=== PATIENT | male | born 1945 | race Caucasian/White ===

== ENCOUNTER 2016-09-10 10:17 | Inpatient (IN) | payer MEDICARE ==
[~2016-09-10 10:17] MED LIST: DEXTROSE 5%-WATER 250 ML with NOREPINEPHRINE BITARTRATE 4 MG IV SCH; MIDAZOLAM IV SCH; NORMAL SALINE 100 ML IV SCH; PROPOFOL 100 ML IV SCH; SODIUM BICARBONATE 4.2% INJ (2.4 MEQ/5 ML) VIAL IV SCH; SUCCINYLCHOLINE CHLORIDE INJ 200 MG/10 ML VIAL ONE
--- NOTE | 2016-09-10 10:27 | ER Document Report ---
ED Medical Screen (RME) - General Stated Complaint: DIFFICULTY BREATHING Notes: Patient states he has been having difficulty breathing for the last month. Has a fever today. Patient also complains of weakness, but denies chest pain. I have greeted and performed a rapid initial assessment of this patient. A comprehensive ED assessment and evaluation of the patient, analysis of test results and completion of the medical decision making process will be conducted by additional ED providers. TRAVEL OUTSIDE OF THE [place] IN LAST 30 DAYS: No - Related Data Allergies/Adverse Reactions: No Known Allergies Allergy (Verified 09/10/16 10:27) Past Medical History - Past Medical History Cardiac Medical History: Reports: Hx Congestive Heart Failure, Hx Hypercholesterolemia, Hx Hypertension Pulmonary Medical History: Reports: Hx Bronchitis, Hx COPD, Hx Pneumonia, Hx Respiratory Failure Endocrine Medical History: Reports: Hx Diabetes Mellitus Type 2 GI Medical History: Reports: Hx Gastroesophageal Reflux Disease Psychiatric Medical History: Denies: Hx Depression Physical Exam - Vital signs Vitals: Temp Pulse Resp BP Pulse Ox 100.5 F H 78 42 H 88/48 L 87 L 09/10/16 10:09/10/16 10:09/10/16 10:09/10/16 10:09/10/16 10:23 - Respiratory Respiratory status: Labored, Tachypnea Breath sounds: Decreased air movement Course - Vital Signs Vital signs: Temp Pulse Resp BP Pulse Ox 100.5 F H 78 42 H 88/48 L 87 L 09/10/16 10:09/10/16 10:09/10/16 10:09/10/16 10:09/10/16 10:23
[2016-09-10] MEDS ORDERED: ACETAMINOPHEN 325 MG TABLET PO ONE (10:43)
[2016-09-10] MEDS ORDERED: LEVOFLOXACIN 750 MG/D5W RTU 150 ML IV ONE (10:43)
[2016-09-10] MEDS ORDERED: NORMAL SALINE 1000 ML 1,000 ML IV PRN ×3 (10:45→12:52)
--- NOTE | 2016-09-10 10:45 | ER Document Report ---
ED General - General Chief Complaint: Shortness Of Breath Stated Complaint: DIFFICULTY BREATHING Mode of Arrival: Ambulatory Information source: Patient, Relative Notes: 71-year-old male history of COPD presents with one month duration of shortness of breath. Patient notes initially he had a productive green cough. Patient notes that he is on 2 L nasal cannula at home but has recently had to increase it. Patient was noted to be febrile and hypoxic hypotensive tachycardic on arrival TRAVEL OUTSIDE OF THE [place] IN LAST 30 DAYS: No - HPI Onset: Other - One month duration of cough Onset/Duration: Persistent Quality of pain: No pain Severity: Moderate Pain Level: Denies Associated symptoms: Body/muscle aches, Productive cough, Fever, Shortness of breath Exacerbated by: Walking Relieved by: Denies Similar symptoms previously: Yes Recently seen / treated by doctor: Yes - Related Data Allergies/Adverse Reactions: No Known Allergies Allergy (Verified 09/10/16 10:27) Past Medical History - Social History Smoking Status: Current Some Day Smoker Cigarette use (# per day): Yes Chew tobacco use (# tins/day): No Smoking Education Provided: Yes - Patient counselled regarding cessation for 4 minutes Frequency of alcohol use: None Drug Abuse: None Family History: None, Reviewed & Not Pertinent Patient has suicidal ideation: No Patient has homicidal ideation: No - Past Medical History Cardiac Medical History: Reports: Hx Congestive Heart Failure, Hx Hypercholesterolemia, Hx Hypertension Pulmonary Medical History: Reports: Hx Bronchitis, Hx COPD, Hx Pneumonia, Hx Respiratory Failure Endocrine Medical History: Reports: Hx Diabetes Mellitus Type 2 Renal/ Medical History: Denies: Hx Peritoneal Dialysis GI Medical History: Reports: Hx Gastroesophageal Reflux Disease Psychiatric Medical History: Denies: Hx Depression Review of Systems - Review of Systems Notes: REVIEW OF SYSTEMS: CONSTITUTIONAL : admits ot fever EENT: Denies eye, ear, throat, or mouth pain or symptoms. Denies nasal or sinus congestion or discharge. Denies throat, tongue, or mouth swelling or difficulty swallowing. CARDIOVASCULAR: Denies chest pain. Denies palpitations or racing or irregular heart beat. Denies ankle edema. RESPIRATORY: admits ot productive cough, sob GASTROINTESTINAL: Denies abdominal pain or distention. Denies nausea, vomiting , or diarrhea. Denies blood in vomitus, stools, or per rectum. Denies black, tarry stools. Denies constipation. GENITOURINARY: Denies difficulty urinating, painful urination, burning, frequency, blood in urine, or discharge. MUSCULOSKELETAL: Denies back or neck pain or stiffness. Denies joint pain or swelling. SKIN: Denies rash, lesions or sores. HEMATOLOGIC : Denies easy bruising or bleeding. LYMPHATIC: Denies swollen, enlarged glands. NEUROLOGICAL: Denies confusion or altered mental status. Denies passing out or loss of consciousness. Denies dizziness or lightheadedness. Denies headache. Denies weakness or paralysis or loss of use of either side. Denies problems with gait or speech. Denies sensory loss, numbness, or tingling. Denies seizures. PSYCHIATRIC: Denies anxiety or stress. Denies depression, suicidal ideation, or homicidal ideation. ALL OTHER SYSTEMS REVIEWED AND NEGATIVE. Dictation was performed using [employer] voice recognition software PHYSICAL EXAMINATION: GENERAL: Ill-appearing male moderate respiratory distress hypotensive HEAD: Atraumatic, normocephalic. EYES: Pupils equal round and reactive to light, extraocular movements intact, sclera anicteric, conjunctiva are normal. ENT: Nares patent, oropharynx clear without exudates. Moist mucous membranes. NECK: Normal range of motion, supple without lymphadenopathy LUNGS: Coarse rhonchi all throughout HEART: Tachycardic ABDOMEN: Soft, nontender, nondistended abdomen. No guarding, no rebound. No masses appreciated. Musculoskeletal: Normal range of motion, no pitting or edema. No cyanosis. NEUROLOGICAL: Cranial nerves grossly intact. Normal speech, normal gait. Normal sensory, motor exams PSYCH: Normal mood, normal affect. SKIN: Hot to touch Physical Exam - Vital signs Vitals: Temp Pulse Resp BP Pulse Ox 100.5 F H 78 42 H 88/48 L 87 L 09/10/16 10:23 09/10/16 10:23 09/10/16 10:23 09/10/16 10:23 09/10/16 10:23 Course - Re-evaluation Re-evalutation: 09/10/16 10:48 Patient meets sirs criteria at this time fluids x-ray imaging lab work are pending. Patient will be immediately placed on BiPAP 09/10/16 11:57 xray consistant with LLL pneumonia, pt lanbs note elevated wbc. pt already started on fluids antibitoics , will admit ot imcu to Dr Arnold - Vital Signs Vital signs: Temp Pulse Resp BP Pulse Ox 100.5 F H 78 20 80/43 L 91 L 09/10/16 10:23 09/10/16 10:23 09/10/16 11:45 09/10/16 11:45 09/10/16 11:45 - Laboratory Result Diagrams: 09/10/16 10:55 09/10/16 10:55 Laboratory results interpreted by me: 09/10/16 09/10/16 09/10/16 10:55 10:55 10:55 WBC 17.0 H Hgb 13.3 L MCHC 31.4 L RDW 15.4 H Seg Neutrophils % 86.8 H Lymphocytes % 5.7 L Absolute Neutrophils 14.7 H VBG pCO2 64.2 H VBG HCO3 32.6 H Chloride 93 L Carbon Dioxide 34 H BUN 25 H Glucose 176 H Total Protein 5.9 L Albumin 3.3 L - Diagnostic Test Radiology reviewed: Image reviewed, Reports reviewed - EKG Interpretation by Me EKG shows normal: Sinus rhythm, [place], Intervals, QRS Complexes - bigeminey When compared to previous EKG there are: Previous EKG unavailable Critical Care Note - Critical Care Note Total time excluding time spent on procedures (mins): 31 Comments: 31 minutes of critical care time spent in direct contact evaluating and reevaluating the patient, treating symptoms, reviewing labs and studies and speaking with family and consultants excluding any procedures Discharge - Discharge Clinical Impression: COPD exacerbation, Hypoxemia, Tobacco dependency Sepsis Qualifiers: Sepsis type: sepsis due to unspecified organism Qualified Code(s): A41.9 - Sepsis, unspecified organism Pneumonia Qualifiers: Pneumonia type: due to unspecified organism Laterality: left Lung location: lower lobe of lung Qualified Code(s): J18.1 - Lobar pneumonia, unspecified organism Condition: Fair Disposition: ADMITTED INPATIENT Admitting Provider: [facility] Unit Admitted: [facility]
[2016-09-10 11:24] LABS: ABSOLUTE BASOPHILS # (AUTO) 0.1 10^3/uL (0.0-0.2); ABSOLUTE MONOCYTES (AUTO) 1.1 10^3/uL (0.1-1.4); ABSOLUTE NEUT (AUTO) 14.7 10^3/uL (1.7-8.2); BASOPHILS % (AUTO) 0.7 % (0-2); EOSINOPHILS % (AUTO) 0.2 % (0-6); HEMATOCRIT 42.3 % (37.9-51.0); HEMOGLOBIN 13.3 g/dL (13.5-17.0); HGB HCT DIFFERENCE -2.4; LYMPHOCYTES % (AUTO) 5.7 % (13-45); MEAN CORPUSCULAR HEMOGLOBIN 28.1 pg (27.0-33.4); MEAN CORPUSCULAR HGB CONC 31.4 g/dL (32.0-36.0); MEAN CORPUSCULAR VOLUME 89 fl (80-97); MONOCYTES % (AUTO) 6.6 % (3-13); RED BLOOD COUNT 4.74 10^6/uL (4.35-5.55); RED CELL DISTRIBUTION WIDTH 15.4 % (11.5-14.0); SEGMENTED NEUTROPHILS % (AUTO) 86.8 % (42-78)
[2016-09-10 11:34] LABS: PROTHROMBIN TIME 13.2 SEC (11.4-15.4)
[2016-09-10 11:38] LABS: VENOUS BLOOD BASE EXCESS 4.4 mmol/L; VENOUS BLOOD HCO3 32.6 mmol/L (20-32); VENOUS BLOOD PCO2 64.2 mmHg (35-63); VENOUS BLOOD PH 7.32 (7.30-7.42)
[2016-09-10 11:47] LABS: ALANINE AMINOTRANSFERASE 25 U/L (21-72); ALBUMIN 3.3 g/dL (3.5-5.0); ALKALINE PHOSPHATASE 95 U/L (38-126); ANION GAP 13 (5-19); ASPARTATE AMINO TRANSFERASE 17 U/L (17-59); BILIRUBIN,DIRECT 0.3 mg/dL (0.0-0.4); BILIRUBIN,TOTAL 0.7 mg/dL (0.2-1.3); BLOOD UREA NITROGEN 25 mg/dL (7-20); CARBON DIOXIDE 34 mmol/L (22-30); CHLORIDE 93 mmol/L (98-107); CREATINE KINASE 81 U/L (55-170); CREATININE RESULT 0.99 mg/dL (0.52-1.25); GLUCOSE 176 mg/dL (75-110); LIPASE 30.2 U/L (23-300); POTASSIUM 4.3 mmol/L (3.6-5.0); SODIUM 139.6 mmol/L (137-145); TOTAL PROTEIN 5.9 g/dL (6.3-8.2)
[2016-09-10 12:01] LABS: CREATINE KINASE MB 0.75 ng/mL (<4.55); TROPONIN I 0.022 ng/mL
[2016-09-10] MEDS ORDERED: ETOMIDATE INJ/PF 20 MG/10 ML SDV IV ONE (12:14)
[2016-09-10] MEDS ORDERED: EPINEPHRINE INJ/PF 1 MG/1 ML AMPULE ONE ×4 (12:16→22:26)
[2016-09-10] MEDS ORDERED: MIDAZOLAM HCL 0 ML IV ONE (12:17)
[2016-09-10] MEDS: DEXTROSE 5%-WATER 250 ML with EPINEPHRINE/PF 1 MG IV PRN ×6 (12:20→19:40)
[2016-09-10 12:33] LABS: APPEARANCE,URINE CLEAR; BILIRUBIN,URINE NEGATIVE (NEGATIVE); GLUCOSE, URINE NEGATIVE (NEGATIVE); KETONES,URINE NEGATIVE (NEGATIVE); LEUKOCYTE ESTERASE,URINE NEGATIVE (NEGATIVE); NITRITE,URINE NEGATIVE (NEGATIVE); PROTEIN,URINE >=500 mg/dL (NEGATIVE); URINE SPECIFIC GRAVITY 1.013; UROBILINOGEN,URINE NEGATIVE mg/dL (<2.0)
[2016-09-10] MEDS ORDERED: ACETAMINOPHEN 325 MG TABLET PO PRN (12:52)
[2016-09-10] MEDS ORDERED: VANCOMYCIN HCL 0 MG in DEXTROSE 5%-WATER 250 ML IV NR (13:00)
[2016-09-10] MEDS ORDERED: DEXTROSE 50%-WATER 25 GM/50 ML DISP.SYRIN IV PRN ×2 (13:01)
[2016-09-10] MEDS ORDERED: DEXTROSE 40% GEL 15 GM TUBE PO PRN ×2 (13:01)
[2016-09-10] MEDS ORDERED: GLUCAGON,HUMAN RECOMB 1 MG INJ IM PRN (13:01)
[2016-09-10] MEDS ORDERED: INSULIN LISPRO 100 UNIT/ML 3 ML VIAL SUBCUT PRN (13:01)
--- NOTE | 2016-09-10 13:12 | EKG REPORT ---
SEVERITY:- ABNORMAL ECG - SINUS RHYTHM SUPRAVENTRICULAR BIGEMINY PROBABLE LEFT ATRIAL ABNORMALITY RIGHT BUNDLE BRANCH BLOCK : Confirmed by: David Hernandez MD 10-Sep-2016 13:12:13
[2016-09-10] MEDS ORDERED: PHARMACY COMMUNICATION ORDER MC NR (14:00)
--- NOTE | 2016-09-10 14:36 | PDOC H&P ---
History of Present Illness Admission Date/PCP: 09/10/16 12:52 Patient complains of: Shortness of the breath History of Present Illness: MERLYN RENTERIA is a 71 year old male This is a 71-year-old male with a significant history of end-stage COPD history of the coronary artery disease and diastolic congestive heart failure and hypertension's and a chronic smoker currently see pulmonary and cardiology as outpatients in patients evaluated and widened in the past and suggest the pretty much hospice care because of the end-stage COPD came to the emergency department with a complaint of shortness of the breath and increasing some cough with a yellow sputum and a congestions and breathing very heavily in the emergency department patient's respiratory rate is high and patient's O2 sat is low even the patient used to to 3 L oxygen at home's patient was put on a BiPAP initially by the ER physicians and the ER physicians noticed that the patient's heart rate was running low and was hypotensive and patient was started on Apri drips when I saw the patient's patient was comfortable in the BiPAP but still the heart rate was between 30 rangeAnd at this point a doctor Curseen the pulmonary was on the bedside with me and suggested patients might get a benefit with the intubations because of the respiratory rate but very extensive discussions with the patient and the daughter and patient does not want to be intubated right nowAnd patient understand the risk and her daughter understood and also to. Patient's heart rate was running around 80 range patients denied any chest painPatient's initial chest x-ray so the pneumonia and patient's white count was also elevated toAdmit the patient in intensive care unit discussed with the cardiology Dr. Andres and he will order the echocardiogram and reevaluate the patient's to rule out any pacemaker placements Past Medical History Cardiac Medical History: Reports: Congestive Heart Failure, Hyperlipidema, Hypertension Pulmonary Medical History: Reports: Bronchitis, Chronic Obstructive Pulmonary Disease (COPD), Pneumonia, Respiratory Failure Endocrine Medical History: Reports: Diabetes Mellitus Type 2 GI Medical History: Reports: Gastroesophageal Reflux Disease Psychiatric Medical History: Denies: Depression Hematology: Reports: Anemia Social History Smoking Status: Current Some Day Smoker Frequency of Alcohol Use: None Hx Recreational Drug Use: No Drugs: None Hx Prescription Drug Abuse: No Family History Family History: None, Reviewed & Not Pertinent Parental Family History Reviewed: Yes Children Family History Reviewed: Yes Sibling(s) Family History Reviewed.: Yes Medication/Allergy Home Medications: Albuterol Sulfate [Albuterol Sulfate 2.5mg/3 mL] 1 vial NEB TID 09/10/16 Amlodipine Besylate [Norvasc 5 mg Tablet] 5 mg PO DAILY 09/10/16 Ipratropium Lolo 2 spray NASL BID 09/10/16 Metformin HCl [Glucophage] 1,000 mg PO BID 09/10/16 Allergies/Adverse Reactions: No Known Allergies Allergy (Verified 09/10/16 10:27) Review of Systems Constitutional: PRESENT: fatigue, weakness Nose, Mouth, and Throat: ABSENT: as per HPI, headache(s), mouth pain, sore throat, vertigo, other Cardiovascular: PRESENT: dyspnea on exertion Respiratory: PRESENT: cough, dyspnea, sputum Gastrointestinal: ABSENT: as per HPI, abdominal pain, bloating, coffee ground emesis, constipation, diarrhea, dysphagia, heartburn, hematemesis, hematochezia , melena, nausea, vomiting, other Genitourinary: ABSENT: as per HPI, difficulty urinating, dysuria, hematuria, nocturia, other Musculoskeletal: ABSENT: as per HPI, back pain, deformity, joint swelling, muscle weakness, other Integumentary: ABSENT: as per HPI, diaphoresis, erythema, lesions, pruritus, rash, wounds, other Neurological: ABSENT: as per HPI, abnormal gait, abnormal movements, abnormal speech, confusion, convulsions, dizziness, focal weakness, frequent falls, lack of coordination, memory loss, numbness, paresthesias, restless legs, syncope, tingling, tremor(s), vertigo, weakness, other Psychiatric: PRESENT: depression Endocrine: ABSENT: as per HPI, cold intolerance, flushing, heat intolerance, menstrual abnormalities, polydipsia, polyphagia, polyuria, other Physical Exam Vital Signs: Temp Pulse Resp BP Pulse Ox 100.5 F H 78 17 96/61 L 93 09/10/16 10:23 09/10/16 10:23 09/10/16 13:16 09/10/16 13:16 09/10/16 13:16 General appearance: PRESENT: cooperative, mild distress Eye exam: PRESENT: PERRLA Neck exam: ABSENT: carotid bruit, full ROM, JVD, lymphadenopathy, meningismus, tenderness, thyromegaly, tracheal deviation, tracheostomy, other Respiratory exam: PRESENT: decreased breath sounds Cardiovascular exam: PRESENT: +S1, +S2 GI/Abdominal exam: PRESENT: distended, normal bowel sounds, soft. ABSENT: tenderness Extremities exam: ABSENT: pedal edema Neurological exam: PRESENT: alert, awake, oriented to person, oriented to place , oriented to time, oriented to situation Psychiatric exam: PRESENT: appropriate affect Skin exam: PRESENT: normal color Results Impressions: Chest X-Ray 09/10/16 10:27 IMPRESSION: Left basilar pneumonia. Assessment & Plan - Diagnosis (1) Acute and chronic respiratory failure Qualifiers: Respiratory failure complication: hypoxia Qualified Code(s): J96.21 - Acute and chronic respiratory failure with hypoxia Is this a current diagnosis for this admission?: YesPlan: Is a hypercapnic respiratory failure with the PCO2 is 64 consult the pulmonary as per discussed with the pulmonary patient appropriate to be intubated but patient is currently okay with the BiPAP and patient's does not want to be at tube (2) Hypotension Qualifiers: Hypotension type: unspecified hypotension type Qualified Code(s): I95.9 - Hypotension, unspecified Is this a current diagnosis for this admission?: YesPlan: Possible sepsis will start the patient on IV antibiotic and rule out the other cardiac possibility patient's echo is pending and consult the cardiology (3) Bradycardia Is this a current diagnosis for this admission?: YesPlan: Currently heart rate is 89 epi drip at 3 we will may be a consider to change the epi drip to the dobutamine after the echo and discussed with the cardiology about 2 to rule out any pacemaker placement according to the patient's he noticed his heart rate was running high not low (4) COPD exacerbation Is this a current diagnosis for this admission?: YesPlan: Currently stable we will start the patient in the nebulizer treatment (5) Hypoxemia Is this a current diagnosis for this admission?: YesPlan: We will order the CT angiogram in the setting of the hypertension but most likely a chronic respiratory failure (6) Pneumonia Qualifiers: Pneumonia type: due to unspecified organism Laterality: left Lung location: lower lobe of lung Qualified Code(s): J18.1 - Lobar pneumonia, unspecified organism Is this a current diagnosis for this admission?: YesPlan: Start the patient on the broad-spectrum antibiotic (7) Sepsis Qualifiers: Sepsis type: sepsis due to unspecified organism Qualified Code(s): A41.9 - Sepsis, unspecified organism Is this a current diagnosis for this admission?: YesPlan: We will get the all cultures start the antibiotic (8) Congestive heart failure (CHF) Qualifiers: Congestive heart failure type: diastolic Congestive heart failure chronicity: acute Qualified Code(s): I50.31 - Acute diastolic (congestive ) heart failure Is this a current diagnosis for this admission?: YesPlan: Patient's also see the cardiology at the [place] and actually scheduled a stress test today in the office patient have a history of the cardiac cath was done no widened and was seeing the nonobstructive coronary disease patient's last echo was EF was normal just the mild diastolic dysfunction spelled the cardiology not (9) Respiratory failure with hypercapnia Qualifiers: Chronicity: acute Qualified Code(s): J96.02 - Acute respiratory failure with hypercapnia Is this a current diagnosis for this admission?: YesPlan: Currently on a BiPAP we will continues to monitor (10) Diabetes mellitus type 2 in obese Is this a current diagnosis for this admission?: YesPlan: Put on a sliding scale - Time Time Spent: 50 to 70 Minutes Critical Time spent with patient: 35 or more minutes Medications reviewed and adjusted accordingly: Yes Anticipated discharge: Other Within: Other - Inpatient Certification Medical Necessity: Need Close Monitoring Due to Risk of Patient Decompensation, Need For IV Fluids, Need for Nebulizer Therapy and Monitoring of Response Post Hospital Care: D/C Retail Field Representative Documentation - Plan Summary Plan Summary: Very extensive discussions with the patient and his daughter about the patient' s current conditions with respiratory failure coronary disease heart failure bradycardia and hypotension's and possible sepsis. Patients does not want any intubated right now. We will continues to monitor the intensive care units already discussed with the cardiology and pulmonary and very extensive discussions with the daughter about the patient's conditions will continues to monitor the patient in the ICU
[2016-09-10] MEDS ORDERED: ACETAMINOPHEN 325 MG TABLET NG PRN (14:38)
[2016-09-10] MEDS: IPRATROPIUM/ALBUTEROL 0.5-2.5 MG/3 ML AMPUL NEB SCH ×2 (16:32→19:57)
--- NOTE | 2016-09-10 17:04 | PDOC CONSULTATION ---
Consultation Consult Date: 09/10/16 Attending physician:: BRETT URIBE Consult reason:: resp fail/pna History of Present Illness Admission Date/PCP: 09/10/16 12:52 History of Present Illness: MERLYN RENTERIA is a 71 year old male Past Medical History Cardiac Medical History: Reports: Congestive Heart Failure, Hyperlipidema, Hypertension Pulmonary Medical History: Reports: Bronchitis, Chronic Obstructive Pulmonary Disease (COPD), Pneumonia, Respiratory Failure Endocrine Medical History: Reports: Diabetes Mellitus Type 2 GI Medical History: Reports: Gastroesophageal Reflux Disease Psychiatric Medical History: Denies: Depression Hematology: Reports: Anemia Social History Smoking Status: Current Some Day Smoker Cigarettes Packs Per Day: 2 Number of Years Smokin Passive smoke exposure as: Both Frequency of Alcohol Use: None Hx Recreational Drug Use: No Drugs: None Hx Prescription Drug Abuse: No Have you had any respiratory illnesses as a child?: No Have you been exposed to any sick contacts recently?: No Have you had any recent respiratory illnesses?: Yes Family History Family History: None, Reviewed & Not Pertinent Parental Family History Reviewed: No Children Family History Reviewed: No Sibling(s) Family History Reviewed.: No Medication/Allergy Home Medications: Albuterol Sulfate [Albuterol Sulfate 2.5mg/3 mL] 1 vial NEB TID 09/10/16 Amlodipine Besylate [Norvasc 5 mg Tablet] 5 mg PO DAILY 09/10/16 Ipratropium Evans 2 spray NASL BID 09/10/16 Metformin HCl [Glucophage] 1,000 mg PO BID 09/10/16 Allergies/Adverse Reactions: No Known Allergies Allergy (Verified 09/10/16 10:27) Review of Systems ROS unobtainable: Other - severe dyspnea Physical Exam Vital Signs: Temp Pulse Resp BP Pulse Ox 100.5 F H 78 17 96/61 L 93 09/10/16 10:23 09/10/16 10:23 09/10/16 13:16 09/10/16 13:16 09/10/16 13:16 General appearance: PRESENT: disheveled, mild distress, morbidly obese Head exam: PRESENT: atraumatic, normocephalic Eye exam: PRESENT: conjunctiva pale, EOMI Mouth exam: PRESENT: dry mucosa, neck supple Neck exam: ABSENT: carotid bruit, JVD, lymphadenopathy, thyromegaly Respiratory exam: PRESENT: decreased breath sounds, prolonged expiratory phas, rales, rhonchi, symmetrical, tachypnea Cardiovascular exam: PRESENT: RRR, +S1, +S2 Pulses: PRESENT: normal radial pulses GI/Abdominal exam: PRESENT: normal bowel sounds, soft. ABSENT: distended, guarding, mass, organolmegaly, rebound, tenderness Rectal exam: PRESENT: deferred Gentrourinary exam: PRESENT: indwelling catheter Neurological exam: PRESENT: awake Psychiatric exam: PRESENT: flat affect Skin exam: PRESENT: dry, intact Results Impressions: Chest X-Ray 09/10/16 10:27 IMPRESSION: Left basilar pneumonia. Assessment & Plan - Diagnosis (1) COPD exacerbation Is this a current diagnosis for this admission?: YesPlan: bronchodialators (2) Pneumonia Qualifiers: Pneumonia type: due to unspecified organism Laterality: left Lung location: lower lobe of lung Qualified Code(s): J18.1 - Lobar pneumonia, unspecified organism Is this a current diagnosis for this admission?: YesPlan: by cxr and WBC (3) Sepsis Qualifiers: Sepsis type: sepsis due to unspecified organism Qualified Code(s): A41.9 - Sepsis, unspecified organism Is this a current diagnosis for this admission?: Yes (4) Tobacco dependency Is this a current diagnosis for this admission?: Yes (5) Acute and chronic respiratory failure Qualifiers: Respiratory failure complication: hypoxia and hypercapnia Qualified Code(s): J96.21 - Acute and chronic respiratory failure with hypoxia Is this a current diagnosis for this admission?: YesPlan: On BiPAP now; consider mechanical ventilation if patient deteriorate - Time Critical Time spent with patient: 35 or more minutes - 55 min
[2016-09-10 17:49] LABS: CREATINE KINASE MB 0.88 ng/mL (<4.55); TROPONIN I 0.014 ng/mL
[2016-09-10] MEDS ORDERED: DOCUSATE SODIUM 100 MG CAPSULE PO SCH (18:00)
[2016-09-10] MEDS ORDERED: IPRATROPIUM BROMIDE 0.06% NASAL SPRAY 15 ML NASL SCH (18:00)
[2016-09-10] MEDS ORDERED: VANCOMYCIN HCL 1,500 MG in DEXTROSE 5%-WATER 250 ML IV SCH (18:00)
[2016-09-10] MEDS ORDERED: (PENDING PHARMACY ID) (Ipratropium Bromide [Ipratropium Bromide] 2 SPRAY) NASL SCH (18:00)
--- NOTE | 2016-09-10 18:23 | TRANSFER SUMMARY E ---
Transfer Summary NAME: MERLYN RENTERIA : 1945 AGE: 71Y ADMITTED: 09/10/2016 TRANSFERRED: 09/10/2016 ADMITTING DIAGNOSES: 1. Respiratory distress. 2. Pneumonia. 3. Acute on chronic respiratory failure. 4. Bradycardia with hypotension. 5. Congestive heart failure. 6. Pneumonia. 7. Sepsis. 8. Type 2 diabetes mellitus. DISCHARGE DIAGNOSES: 1. Bradycardia with hypotensive history. 2. Pacemaker. 3. Acute on chronic respiratory failure. 4. Pneumonia. 5. Chronic obstructive pulmonary disease. 6. Hypoxia. 7. Type 2 diabetes mellitus. 8. Sepsis. CONSULTANTS: 1. Dr. Rodriguez, Pulmonary. 2. Dr. Andres, Cardiology. PROCEDURES: None. COMPLICATIONS: Patient is still on BiPAP. PHYSICAL EXAMINATION: VITAL SIGNS: Blood pressure was 99/58. Temperature is 99.9. Pulse was 80. Respiration was 20. O2 saturation is 96% on 80% oxygen on BiPAP. GENERAL: The patient is alert, awake, answers all questions appropriately in no acute distress on the BiPAP. HEAD AND NECK: Normocephalic. PERRLA. LUNGS: Decreased breath sounds bilaterally. HEART: S1, S2 are present. ABDOMEN: Soft. Bowel sounds present. EXTREMITIES: No edema. NEUROLOGIC: Patient moves all four extremities. HOSPITAL COURSE: This is a 71-year-old male basically admitted to the hospital today with respiratory distress, cough, congestion, and diagnosed with left-sided pneumonia with respiratory failure with pCO2 of 64, and pH was 7.32. Patient at this point with BiPAP by Dr. Rodriguez. Patient also put on epinephrine drip because the patient was hypotensive with blood pressure 70/40, and patient's heart rate was running 40 to 60 range. Patient is currently stable with epinephrine drip. Dr. Andres of Cardiology was consulted and suggested that the patient probably needs to go to a tertiary center for further pacemaker evaluation. The patient is actually seeing [facility] and was scheduled for a stress test today in his office. The patient has a history of significant COPD and pneumonia and a history of congestive heart failure diastolic. The patient had a cardiac catheterization a couple of years back at [facility] with nonobstructive coronary disease. The patient saw Dr. Christensen *------* of Cardiology last week and scheduled the stress test today in [place]. The patient is currently otherwise initial troponin was negative. Extensive discussion with the patient and the family including the daughter and the sister regarding the patient's current condition and discussed to coordinate care with Dr. Rodriguez and Dr. Andres, and the patient is probably transferred to [facility]. The patient initially refused to be intubated and did not want to intubate and put the tube right now. The patient understands the risks. Patient otherwise remains stable with current settings. TIME SPENT: More than 30 minutes spent examining the patient, reviewing the records. DICTATING PHYSICIAN: BRETT URIBE M.D. [id number] PHY#: [id number] ID: [id number] JOB#: [id number] ACCT: [id number] cc:BRETT URIBE M.D. >
--- NOTE | 2016-09-10 18:27 | EKG REPORT ---
SEVERITY:- ABNORMAL ECG - SINUS BRADYCARDIA RIGHT BUNDLE BRANCH BLOCK : Confirmed by: David Hernandez MD 10-Sep-2016 18:26:37
[2016-09-10 19:10] VITALS: BP 143/80
[2016-09-10 19:18] LABS: ARTERIAL BLOOD BASE EXCESS 0.4 mmol/L; ARTERIAL BLOOD O2 SATURATION 95.1 % (94-98)
--- NOTE | 2016-09-10 20:04 | PDOC CONSULTATION ---
Consultation Consult Date: 09/10/16 Attending physician:: BRETT URIBE Consult reason:: Bradycardia and hypotension History of Present Illness Admission Date/PCP: 09/10/16 12:52 Patient complains of: Shortness of breath History of Present Illness: MERLYN RENTERIA is a 71 year old male, with severe COPD, abnormal EKG, who was brought to the emergency room with severe shortness of breath and generalized weakness. Patient was noted to be in respiratory failure and was placed on bilevel therapy. Presentation heart rate was 40 and blood pressure was low. ER physician started patient on epinephrine drip subsequently heart rate and blood pressure improved. Initially a decision was made for patient to be intubated to stabilize him as it was felt that respiratory distress could be leading to cardiac dysrhythmia. Patient currently needing FiO2 of 80% to maintain oxygenation. Patient blood pressure is in the low 100 range with heart rate in the 60s on 4 minutes micrograms per minute of epinephrine. Discussed transfer to tertiary care with which patient is agreeable. Discussed this with Dr. Uribe who is going to arrange this. Patient on repeated questioning denied any chest pain. He has noted some cough and sputum production and possibly some low-grade fever. Past Medical History Cardiac Medical History: Reports: Congestive Heart Failure, Hyperlipidema, Hypertension Pulmonary Medical History: Reports: Bronchitis, Chronic Obstructive Pulmonary Disease (COPD), Pneumonia, Respiratory Failure Endocrine Medical History: Reports: Diabetes Mellitus Type 2 GI Medical History: Reports: Gastroesophageal Reflux Disease Psychiatric Medical History: Denies: Depression Hematology: Reports: Anemia Social History Smoking Status: Former Smoker Cigarettes Packs Per Day: 2 Number of Years Smokin Frequency of Alcohol Use: None Hx Recreational Drug Use: No Drugs: None Hx Prescription Drug Abuse: No - Advance Directive Resuscitation Status: Full Code Family History Family History: None, Reviewed & Not Pertinent Parental Family History Reviewed: Yes Children Family History Reviewed: No Sibling(s) Family History Reviewed.: Yes Medication/Allergy Home Medications: Albuterol Sulfate [Albuterol Sulfate 2.5mg/3 mL] 1 vial NEB TID 09/10/16 Amlodipine Besylate [Norvasc 5 mg Tablet] 5 mg PO DAILY 09/10/16 Ipratropium [place] 2 spray NASL BID 09/10/16 Metformin HCl [Glucophage] 1,000 mg PO BID 09/10/16 Allergies/Adverse Reactions: No Known Allergies Allergy (Verified 09/10/16 10:27) Physical Exam Vital Signs: Temp Pulse Resp BP Pulse Ox 99.1 F 75 18 143/80 H 93 09/10/16 16:03 09/10/16 18:00 09/10/16 16:32 09/10/16 18:20 09/10/16 16:32 Intake & Output 09/09/16 09/10/16 09/11/16 06:59 06:59 06:59 Weight 116.8 kg Results Laboratory Results: 09/10/16 18:50 Carbonic Acid 1.97 H HCO3/H2CO3 Ratio 14:1 ABG pH 7.26 L ABG pCO2 65.4 H ABG pO2 87.9 ABG HCO3 28.8 H ABG O2 Saturation 95.1 ABG Base Excess 0.4 FiO2 80% 09/10/16 17:04 CK-MB (CK-2) 0.88 Troponin I 0.014 Impressions: Chest X-Ray 09/10/16 10:27 IMPRESSION: Left basilar pneumonia. Assessment & Plan - Diagnosis (1) Bradycardia Is this a current diagnosis for this admission?: Yes (2) COPD exacerbation Is this a current diagnosis for this admission?: Yes (3) Hypotension Qualifiers: Hypotension type: unspecified hypotension type Qualified Code(s): I95.9 - Hypotension, unspecified Is this a current diagnosis for this admission?: Yes (4) Hypoxemia Is this a current diagnosis for this admission?: Yes (5) Pneumonia Qualifiers: Pneumonia type: due to unspecified organism Laterality: left Lung location: lower lobe of lung Qualified Code(s): J18.1 - Lobar pneumonia, unspecified organism Is this a current diagnosis for this admission?: Yes (6) Sepsis Qualifiers: Sepsis type: sepsis due to unspecified organism Qualified Code(s): A41.9 - Sepsis, unspecified organism Is this a current diagnosis for this admission?: Yes (7) Acute and chronic respiratory failure Qualifiers: Respiratory failure complication: hypoxia and hypercapnia Qualified Code(s): J96.21 - Acute and chronic respiratory failure with hypoxia Is this a current diagnosis for this admission?: Yes - Notes Notes: Bradycardia: This was noted to be severe on presentation. No no easily remediable cause was noted. Patient was therefore placed on epinephrine drip. Patient is maintaining adequate heart rate and blood pressure on epinephrine drip. COPD exacerbation: Continue with antibiotics, bronchodilator and steroid therapy. Hypotension: Recommend intermittent fluid boluses and continue vasopressor drip. This is most likely related to septic shock. Hypoxemia: Patient will benefit from endotracheal intubation but currently he is declining. Respiratory failure: Acute on chronic with hypoxemia and hypercapnia. This is based on ABG. Again recommendations are for ventilator therapy and endotracheal intubation but patient is declining. Sepsis: Continue antibiotic therapy. Pneumonia: Chest x-ray suggest left lower lobe pneumonia. Continue with antibiotic therapy, maintain oxygenation. The patient was seen multiple times in the emergency room, in the unit. Multiple discussions were made with the patient, patient's family regarding transfer to tertiary care, ventilator management etc. so far patient is not interested. Patient has multiple serious conditions and there is a potential need for multispecialty involvement. Patient's cardiologists are in [facility]. Best bet would be to try transferred him over there for tertiary care. He also wants to remain full code although he understand that he has severe COPD. It is possible that he might change his mind. Dr. Uribe will talk to him about CODE STATUS himself as well. - Time Time Spent: 50 to 70 Minutes Critical Time spent with patient: 15-25 minutes - CODE STATUS was discussed, patient remains full code. Surrogate decision-maker unchanged. Multiple medical problems were addressed.More than 50% of the time spent coordinating care, discussing management plans with involved caregivers. Management plans discussed with involved personnels. Medical decision making was of high complexity. Medications reviewed and adjusted accordingly: Yes
[2016-09-10] MEDS ORDERED: PROPOFOL 100 ML IV ONE ×2 (20:18→21:50)
[2016-09-10] MEDS ORDERED: PROPOFOL INJ 200 MG/20 ML VIAL IV ONE (20:25)
[2016-09-10 20:56] LABS: ARTERIAL BLOOD BASE EXCESS -0.2 mmol/L; ARTERIAL BLOOD O2 SATURATION 93.8 % (94-98)
[2016-09-10] MEDS ORDERED: NOREPINEPHRINE BITARTRATE INJ/PF 4 MG/4 ML SDV IV ONE (21:01)
[2016-09-10] MEDS ORDERED: SODIUM BICARBONATE 8.4% INJ 50 MEQ/50 ML DISP.SYRIN ONE (21:26)
[2016-09-10] MEDS ORDERED: FAMOTIDINE INJ/PF 20 MG/2 ML SDV IV SCH (22:00)
[2016-09-10] MEDS ORDERED: CEFEPIME 1 GM/D5W RTU 50 ML IV SCH (22:00)
[2016-09-11] MEDS ORDERED: ENOXAPARIN SODIUM INJ 40 MG/0.4 ML DISP.SYRIN SUBCUT SCH (08:00)
--- NOTE | 2016-09-14 16:28 | PDOC PROGRESS REPORT ---
Subjective Progress Note for:: 09/11/16 Subjective:: intubated Physical Exam Vital Signs: Temp Pulse Resp BP Pulse Ox 99.1 F 100 48 H 143/80 H 96 09/10/16 16:03 09/10/16 19:57 09/10/16 19:57 09/10/16 18:20 09/10/16 21:20 Intake & Output 09/10/16 09/11/16 09/12/16 06:59 06:59 06:59 Output Total 550 Balance -550 Weight 116.8 kg General appearance: PRESENT: disheveled, well-developed, well-nourished Head exam: PRESENT: atraumatic, normocephalic Eye exam: PRESENT: conjunctiva pale Mouth exam: PRESENT: moist, neck supple, other - ET tube Neck exam: ABSENT: carotid bruit, JVD, lymphadenopathy, thyromegaly Respiratory exam: PRESENT: decreased breath sounds, prolonged expiratory phas, rales, rhonchi, symmetrical, unlabored Cardiovascular exam: PRESENT: irregular rhythm Pulses: PRESENT: normal radial pulses GI/Abdominal exam: PRESENT: normal bowel sounds, soft. ABSENT: distended, guarding, mass, organolmegaly, rebound, tenderness Rectal exam: PRESENT: deferred Gentrourinary exam: PRESENT: indwelling catheter Skin exam: PRESENT: dry, intact Results Laboratory Results: 09/10/16 09/10/16 18:50 20:47 Carbonic Acid 1.97 H 2.27 H HCO3/H2CO3 Ratio 14:1 13:1 ABG pH 7.26 L 7.21 L ABG pCO2 65.4 H 75.3 H* ABG pO2 87.9 84.5 ABG HCO3 28.8 H 29.6 H ABG O2 Saturation 95.1 93.8 L ABG Base Excess 0.4 -0.2 FiO2 80% 100% 09/10/16 17:04 CK-MB (CK-2) 0.88 Troponin I 0.014 Impressions: Chest X-Ray 09/10/16 10:27 IMPRESSION: Left basilar pneumonia. Assessment & Plan - Diagnosis (1) COPD exacerbation Is this a current diagnosis for this admission?: YesPlan: bronchodialators (2) Pneumonia Qualifiers: Pneumonia type: due to unspecified organism Laterality: left Lung location: lower lobe of lung Qualified Code(s): J18.1 - Lobar pneumonia, unspecified organism Is this a current diagnosis for this admission?: YesPlan: by cxr and WBC (3) Sepsis Qualifiers: Sepsis type: sepsis due to unspecified organism Qualified Code(s): A41.9 - Sepsis, unspecified organism Is this a current diagnosis for this admission?: Yes (4) Tobacco dependency Is this a current diagnosis for this admission?: Yes (5) Acute and chronic respiratory failure Qualifiers: Respiratory failure complication: hypoxia and hypercapnia Qualified Code(s): J96.21 - Acute and chronic respiratory failure with hypoxia Is this a current diagnosis for this admission?: YesPlan: On BiPAP now; consider mechanical ventilation if patient deteriorate
== END 2016-09-10 22:40 | disposition short-term general hospital (02) | DRG 871 ==
LOC: ER 10:17 → EH 12:21 → UNDOADMIN 12:21 → EH 12:52 → ICU 16:20
PROVIDERS: ADMIT Family Medicine; ATTEND Family Medicine
PROC: 5A1935Z Respiratory Ventilation, Less than 24 Consecutive Hours (ICD-10-PCS; principal; 2016-09-10)
PROC: 0BH17EZ Insertion of Endotracheal Airway into Trachea, Via Natural or Artificial Opening (ICD-10-PCS; 2016-09-10)
PROC: 5A09357 Assistance with Respiratory Ventilation, Less than 24 Consecutive Hours, Continuous Positive Airway Pressure (ICD-10-PCS; 2016-09-10)
PROC: 3E0F73Z Introduction of Anti-inflammatory into Respiratory Tract, Via Natural or Artificial Opening (ICD-10-PCS; 2016-09-10)
PROC: 02HV33Z Insertion of Infusion Device into Superior Vena Cava, Percutaneous Approach (ICD-10-PCS; 2016-09-10)
DX: A41.9 Sepsis, unspecified organism (principal); J96.21 Acute and chronic respiratory failure with hypoxia; J96.22 Acute and chronic respiratory failure with hypercapnia; J18.1 Lobar pneumonia, unspecified organism; R65.21 Severe sepsis with septic shock; I50.31 Acute diastolic (congestive) heart failure; J44.1 Chronic obstructive pulmonary disease with (acute) exacerbation; I95.9 Hypotension, unspecified; R00.1 Bradycardia, unspecified; E11.9 Type 2 diabetes mellitus without complications; E78.5 Hyperlipidemia, unspecified; I10 Essential (primary) hypertension; K21.9 Gastro-esophageal reflux disease without esophagitis; D64.9 Anemia, unspecified; I25.10 Atherosclerotic heart disease of native coronary artery without angina pectoris; F17.210 Nicotine dependence, cigarettes, uncomplicated; E78.00 Pure hypercholesterolemia, unspecified; Z78.1 Physical restraint status; Z79.899 Other long term (current) drug therapy
CPT/HCPCS: 31500; 36415; 71010; 80053; 81001; 82550; 82553; 82803; 82962; 83605; 83690; 83880; 84484; 85025; 85610; 87040; 87086; 93005; 93010; 94002; 94640; 94660; 96365; 99291; 99406; C1751; J0171; J0330; J1956; J2250; J2704; J3370; J3490; J7030; J7060; J7620